=== PATIENT | male | born 1950 | race Caucasian/White ===

== ENCOUNTER 2019-04-09 10:08 | Day surgery (SDC) | payer MEDICARE, BC ==
[~2019-04-09 10:08] MED LIST: Sodium Chloride 0.9% 1,000 ML IV SCH; Sodium Chloride 0.9% 10 ML Syringe FLUSH PRN
[2019-04-09] MEDS ORDERED: fentaNYL 100 MCG/2 ML SDV IV ONE (10:09)
[2019-04-09] MEDS ORDERED: Propofol 200 MG/20 ML SDV IV ONE (10:09)
[2019-04-09] MEDS ORDERED: Lidocaine 0.5% 50 ML SDV INJECT ONE (10:09)
[2019-04-09] MEDS ORDERED: Midazolam 1 MG/ML 2 ML SDV IV ONE (10:09)
[2019-04-09] MEDS ORDERED: ceFAZolin 1 GM Vial IV ONE (10:09)
[2019-04-09] MEDS ORDERED: fentaNYL 100 MCG/2 ML SDV ONE (11:25)
[2019-04-09] MEDS ORDERED: ceFAZolin 1 GM Vial ONE (11:25)
[2019-04-09] MEDS ORDERED: Lidocaine 0.5% 50 ML SDV ONE (11:25)
[2019-04-09] MEDS ORDERED: Propofol 200 MG/20 ML SDV ONE (11:25)
[2019-04-09] MEDS ORDERED: Midazolam 1 MG/ML 2 ML SDV ONE (11:25)
[2019-04-09] MEDS ORDERED: Bupivacaine 0.5% 30 ML SDV ONE (11:31)
[2019-04-09] MEDS ORDERED: Bupivacaine 0.5% 10 ML SDV INFILT ONE (12:00)
--- NOTE | 2019-04-09 12:36 | PCM.OPNOTE ---
- General Post-Op/Procedure Note Date of Surgery/Procedure: 04/09/19 Operative Procedure(s): Left carpal tunnel release. Anesthesia Technique: ML Primary Surgeon: Alex Herring Complications: None Condition: Good Free Text/Narrative:: INFORMED CONSENT: Patient is here today for elective left carpal tunnel release. All aspects of this procedure have been discussed with the patient. All possible complications also, including possibility of infection, pain, numbness and failure of the surgery to relieve the symptoms were discussed.. Anesthetic complications were handled by anesthesia department. The patient understands fully well. Patient did not have any further questions for me at the end of my interview. The patient wishes for me to proceed. PROCEDURE: Patient was kept in the supine position and the satisfactory Kane block anesthesia was administered. The left arm was thoroughly prepped and draped in the usual fashion. The tourniquet was placed to the left upper arm and a vertical incision was made in the palm directly distal to the distal wrist crease. The skin incision was deepened through the subcutaneous tissue, the palmar aponeurosis was incised and then we came down upon the transverse carpal ligament, which was opened along the line of the skin incision. Extreme care was taken to protect the median nerve below. Careful neurolysis was performed meticulously. Approximately 2 cc of Marcaine 0.5% was instilled into the wound and skin was closed using mattress sutures with 3.0 Nylon. The tourniquet was released. A sterile pressure dressing was applied. The patient tolerated the procedure well and was transferred to the recovery room in excellent condition.
== END 2019-04-09 13:50 | disposition home or self-care (01) ==
LOC: KA.SDS 10:08
PROVIDERS: ATTEND Family Medicine
DX: G56.02 Carpal tunnel syndrome, left upper limb (principal); I10 Essential (primary) hypertension; E66.9 Obesity, unspecified; Z68.42 Body mass index [BMI] 45.0-49.9, adult; Z79.899 Other long term (current) drug therapy
CPT/HCPCS: 01810; 82962; J0690; J2001; J2250; J2704; J3010; J3490; J7030

== ENCOUNTER 2019-04-29 07:57 | Day surgery (SDC) | payer MEDICARE, BC ==
[2019-04-29] MEDS ORDERED: Propofol 200 MG/20 ML SDV IV ONE (07:58)
[2019-04-29] MEDS ORDERED: Midazolam 1 MG/ML 2 ML SDV IV ONE (07:58)
[2019-04-29] MEDS ORDERED: Sodium Chloride 0.9% 1,000 ML IV SCH (08:00)
[2019-04-29] MEDS ORDERED: Sodium Chloride 0.9% 10 ML Syringe FLUSH PRN (08:00)
[2019-04-29] MEDS ORDERED: EPINEPHrine 1:10,000 1 MG/10 ML Syringe ONE (08:49)
[2019-04-29] MEDS ORDERED: Midazolam 1 MG/ML 2 ML SDV ONE (08:50)
[2019-04-29] MEDS ORDERED: Propofol 200 MG/20 ML SDV ONE (08:50)
--- NOTE | 2019-04-29 10:21 | PCM.OPNOTE ---
- General Post-Op/Procedure Note Date of Surgery/Procedure: 04/29/19 Operative Procedure(s): Colonoscopy and polypectomy Anesthesia Technique: MAC Primary Surgeon: Alex Herring Condition: Good Free Text/Narrative:: INFORMED CONSENT: Patient is here today for elective colonoscopy. All aspects of this procedure have been discussed with the patient. All possible complications also, including possibility of perforation, infection, pain, bleeding and unknown complications. In the event of perforation patient may need to have abdominal exploration, colon resection, colostomy and even was discussed. Anesthetic complications were handled by anesthesia department. The patient understands fully well. Patient did not have any further questions for me at the end of my interview. The patient wishes for me to proceed. PREOPERATIVE DIAGNOSIS/INDICATIONS: [Pending colonoscopy] POSTOPERATIVE DIAGNOSIS: [Polyp of the sigmoid colon at 30 cm.] INSTRUMENT USED: Olympus videocolonoscope. ASA CLASSIFICATION: [2] ANESTHESIA: Continuous EKG, oximetry and intermittent blood pressure and respiratory monitoring were performed throughout the procedure. IV Versed and Fentanyl were administered. PROCEDURE PERFORMED: Colonoscopy POSITIONS OF PATIENT: Left lateral. RECTUM: Normal. SIGMOID COLON: Medium-sized polyp was identified and removed using a combination of loop electrocautery, and hot biopsy forceps. DESCENDING COLON: Normal. SPLENIC FLEXURE: Normal. TRANSVERSE COLON: Normal. HEPATIC FLEXURE: Normal. ASCENDING COLON: Normal. CECUM: Normal. ILEOCECAL VALVE: Normal. BIOPSY: None. TOLERANCE: Excellent. COMPLICATIONS: None.
== END 2019-04-29 10:35 | disposition home or self-care (01) ==
LOC: KA.SDS 07:57
PROVIDERS: ATTEND Family Medicine
DX: D12.5 Benign neoplasm of sigmoid colon (principal); I10 Essential (primary) hypertension; G56.02 Carpal tunnel syndrome, left upper limb; R73.03 Prediabetes; E66.9 Obesity, unspecified; Z68.42 Body mass index [BMI] 45.0-49.9, adult; Z86.010 Personal history of colon polyps
CPT/HCPCS: 00812; 45384; 82962; 88305; J2250; J2704; J7030

== ENCOUNTER 2019-12-24 20:12 | Emergency (ER) | payer MEDICARE, BC ==
--- NOTE | 2019-12-24 20:28 | EDM.PDOC ---
ED HPI GENERAL MEDICAL PROBLEM - General Chief Complaint: Upper Extremity Injury/Pain Stated Complaint: SHOULDER INJURY Time Seen by Provider: 12/24/19 20:20 Source of Information: Reports: Patient History Limitations: Reports: No Limitations - History of Present Illness INITIAL COMMENTS - FREE TEXT/NARRATIVE: 69 YO WM PRESENTS TO ER COMPLAINING OF RIGHT SHOULDER AND RIGHT SIDED CHEST/BACK PAIN WHICH BEGAN TODAY AFTER FALL AT HOME. PT REPORTS HE WAS KNOCKED OVER WHEN THE WIND BLEW HIS TRAILER DOOR AND CAUSED HIM TO FALL TO THE GROUND. PT REPORTS HE LANDED ON HIS RIGHT SIDE. PT DENIES ANY LOSS OF CONSCIOUSNESS. PT STATES HIS RIGHT SHOULDER HAS BEEN BOTHERING HIM SINCE THE FALL. PT ALSO COMPLAINS OF RIGHT RIB AND UPPER BACK TENDERNESS FROM FALL. PT DENIES SHORTNESS OF BREATH OR DIFFICULTY IN BREATHING. PT DENIES HEAD/NECK INJURIES. Onset: Today Location: Reports: Chest, Upper Extremity, Right Quality: Reports: Ache Severity: Mild Improves with: Reports: Rest Worsens with: Reports: Movement Associated Symptoms: Reports: Chest Pain. Denies: Cough, cough w sputum, Fever/Chills, Nausea/Vomiting, Shortness of Breath Right Shoulder Pain Score (Numeric/FACES): 8 - Related Data Allergies Allergy/AdvReac Type Severity Reaction Status Date / Time No Known Drug Allergies Allergy Other Verified 12/24/19 20:42 Home Meds: Home Meds Acetaminophen 500 mg PO Q4H PRN 04/08/19 [History] Diclofenac Sodium 75 mg PO BID 04/08/19 [History] Melatonin 10 mg PO BEDTIME 04/08/19 [History] hydroCHLOROthiazide [Hydrochlorothiazide] 25 mg PO DAILY 04/08/19 [History] lisinopriL [Zestril] 30 mg PO DAILY 04/08/19 [History] miSOPROStoL [Cytotec] 200 mcg PO BID 04/08/19 [History] Polyethylene Glycol 8000 [Polyethylene Glycol] 17 g PO TID PRN 12/24/19 [History] traMADol [Ultram] 50 mg PO Q4H PRN #15 tab 12/24/19 [Rx] Past Medical History HEENT History: Reports: Cataract, Hard of Hearing, Impaired Vision Cardiovascular History: Reports: Hypertension, SOB on Exertion Gastrointestinal History: Reports: Colon Polyp Musculoskeletal History: Reports: Arthritis, Back Pain, Chronic Endocrine/Metabolic History: Reports: Other (See Below) Other Endocrine/Metabolic History: pre-diabetes. - Infectious Disease History Infectious Disease History: Reports: Chicken Pox, Measles, Mumps - Past Surgical History HEENT Surgical History: Reports: Cataract Surgery Other HEENT Surgeries/Procedures: bilateral Cardiovascular Surgical History: Reports: None GI Surgical History: Reports: Colonoscopy Musculoskeletal Surgical History: Reports: Carpal Tunnel, Knee Replacement Social & Family History - Family History Cardiac: Reports: [facility] Neurological: Reports: Seizure - Caffeine Use Caffeine Use: Reports: Coffee Other Caffeine Use: 2 cups coffee per day Review of Systems - Review of Systems Review Of Systems: See Below Constitutional: Reports: No Symptoms Eyes: Reports: No Symptoms Ears: Reports: No Symptoms Nose: Reports: No Symptoms Mouth/Throat: Reports: No Symptoms Respiratory: Reports: No Symptoms Cardiovascular: Reports: Chest Pain GI/Abdominal: Reports: No Symptoms Genitourinary: Reports: No Symptoms Musculoskeletal: Reports: Shoulder Pain, Back Pain Skin: Reports: No Symptoms Neurological: Reports: No Symptoms Psychiatric: Reports: No Symptoms ED EXAM, GENERAL - Physical Exam Exam: See Below Exam Limited By: No Limitations General Appearance: Alert, WD/WN, No Apparent Distress Head: Atraumatic, Normocephalic Neck: Normal Inspection, Supple, Non-Tender, Full Range of Motion Respiratory/Chest: No Respiratory Distress, Lungs Clear, Normal Breath Sounds, No Accessory Muscle Use, Chest Non-Tender Cardiovascular: Normal Peripheral Pulses, Regular Rate, Rhythm, No Edema, No Gallop, No JVD, No Murmur, No Rub GI/Abdominal: Normal Bowel Sounds, Soft, Non-Tender, No Organomegaly, No Distention, No Abnormal Bruit, No Mass Back Exam: Normal Inspection, Full Range of Motion, NT Extremities: Other (RIGHT SHOULDER PAIN ON AROM; RIGHT SIDED CHEST WALL PAIN ON COMPRESSION ) Neurological: Alert, Oriented, CN II-XII Intact, Normal Cognition, Normal Gait, Normal Reflexes, No Motor/Sensory Deficits Psychiatric: Normal Affect, Normal Mood Skin Exam: Warm, Dry, Intact, Normal Color, No Rash Course - Vital Signs Last Recorded V/S: Last Vital Signs Temp 35.9 C L 12/24/19 20:34 Pulse 82 12/24/19 20:34 Resp 20 12/24/19 20:34 BP 139/76 12/24/19 20:34 Pulse Ox 94 L 12/24/19 20:34 - Orders/Labs/Meds Meds: Medications Discontinued Medications Generic Name Dose Route Start Last Admin Trade Name Freq PRN Reason Stop Dose Admin Ketorolac Tromethamine 60 mg 12/24/19 21:09 12/24/19 21:16 Toradol IM 12/24/19 21:10 60 mg ONETIME ONE Administration - Radiology Interpretation Free Text/Narrative:: RIGHT RIB SERIES WITH CHEST- NAD RIGHT SHOULDER XRAY-NAD Departure - Departure Time of Disposition: 21:21 Disposition: Home, Self-Care 01 Condition: Good Clinical Impression: Contusion of rib on right side Qualifiers: Encounter type: initial encounter Qualified Code(s): S20.211A - Contusion of right front wall of thorax, initial encounter Sprain of right shoulder Qualifiers: Encounter type: initial encounter Shoulder sprain type: unspecified sprain Qualified Code(s): S43.401A - Unspecified sprain of right shoulder joint, initial encounter - Discharge Information Prescriptions: traMADol [Ultram] 50 mg PO Q4H PRN #15 tab PRN Reason: Pain Referrals: Molly Ruffin, [facility] [Primary Care Provider] - Forms: ED Department Discharge, ED Return to Work/School Form Additional Instructions: 1. DISCHARGE HOME 2. SLING/ICE TO RIGHT SHOULDER 3. ULTRAM 50MG #15 EVERY 4-6 HOURS NEEDED 4. FOLLOW UP WITH PCP FOR FURTHER EVALUATION AND TREATMENT 5. RETURN TO ER FOR WORSENING SYMPTOMS Sepsis Event Note (ED) - Focused Exam Vital Signs: Vital Signs Temp Pulse Resp BP Pulse Ox 12/24/19 20:34 35.9 C L 82 20 139/76 94 L - Assessment/Plan Assessment:: 1. FALL 2. RIGHT SHOULDER SPRAIN 3. RIGHT RIB CONTUSION Plan: 1. DISCHARGE HOME 2. SLING/ICE TO RIGHT SHOULDER 3. ULTRAM 50MG #15 EVERY 4-6 HOURS NEEDED 4. FOLLOW UP WITH PCP FOR FURTHER EVALUATION AND TREATMENT 5. RETURN TO ER FOR WORSENING SYMPTOMS
[2019-12-24] MEDS ORDERED: Ketorolac 60 MG/2 ML SDV IM ONE (21:09)
--- NOTE | 2019-12-24 21:17 | CR ---
[id number] RAD/RAD Ribs Right W PA Chest Exam: RAD Ribs Right W PA Chest Clinical Data: TRAUMA COMPARISON: NO PREVIOUS SIMILAR EXAM IS AVAILABLE FINDINGS: There is no pneumothorax There is no fracture seen The lungs are clear There are no pleural fluid collections IMPRESSION: NEGATIVE EXAM Alan Bradley MD 12/24/19 0929 Thank you for allowing us to participate in the care of your patient.
--- NOTE | 2019-12-24 21:17 | CR ---
[id number] RAD/RAD Shoulder Right 2V Min EXAM: RAD Shoulder Right 2V Min CLINICAL DATA: TRAUMA COMPARISON: NO PREVIOUS SIMILAR EXAM IS AVAILABLE. FINDINGS: No fracture or dislocation is seen. There is no radiopaque foreign body in the soft tissues. There is no air in the soft tissues. There is no cortical thickening or periosteal reaction either. IMPRESSION: NEGATIVE PLAIN FILM EXAM. Alan Bradley MD 12/24/19 [id number] Thank you for allowing us to participate in the care of your patient.
== END 2019-12-24 21:33 | disposition home or self-care (01) ==
LOC: SUPCPDRO 20:12 → KA.ED 20:12
DX: S43.401A Unspecified sprain of right shoulder joint, initial encounter (principal); S20.211A Contusion of right front wall of thorax, initial encounter; I10 Essential (primary) hypertension; M19.90 Unspecified osteoarthritis, unspecified site; Z79.899 Other long term (current) drug therapy; W17.89XA Other fall from one level to another, initial encounter; Y92.009 Unspecified place in unspecified non-institutional (private) residence as the place of occurrence of the external cause
CPT/HCPCS: 71101; 73030; 96372; 99283; J1885